=== PATIENT | female | born 1945 | race Caucasian/White ===

== ENCOUNTER 2017-09-20 01:22 | Inpatient (IN) | payer OTHER, MEDICARE ==
[2017-09-20] MEDS ORDERED: SODIUM CHLORIDE 0.9% FLUSH 10 ML FLUSH IV FLUSH ×2 (01:45→03:45)
[2017-09-20 01:58] LABS: AUTOMATED NEUTROPHIL # 7.4 TH/MM3 (1.8-7.7); BASOPHIL # 0.1 TH/MM3 (0-0.2); BASOPHIL % 0.9 % (0.0-2.0); EOSINOPHIL # 0.3 TH/MM3 (0-0.4); EOSINOPHIL % 2.6 % (0.0-4.0); HEMATOCRIT 41.2 % (35.0-46.0); HEMO FLAGS DIFF FINAL; HEMOGLOBIN 14.3 GM/DL (11.6-15.3); LYMPH % 19.5 % (9.0-44.0); LYMPHOCYTE # 2.1 TH/MM3 (1.0-4.8); MEAN CELL VOLUME 82.4 FL (80.0-100.0); MEAN CORPUSCULAR HEMOGLOBIN 28.6 PG (27.0-34.0); MEAN CORPUSCULAR HGB CONC 34.7 % (32.0-36.0); MEAN PLATELET VOLUME 8.3 FL (7.0-11.0); MONO % 7.9 % (0.0-8.0); MONOCYTE # 0.8 TH/MM3 (0-0.9); NEUT % 69.1 % (16.0-70.0); PLATELET COUNT 214 TH/MM3 (150-450); RED CELL DISTRIBUTION WIDTH 14.7 % (11.6-17.2); WHITE BLOOD COUNT 10.7 TH/MM3 (4.0-11.0)
[2017-09-20 02:13] LABS: ALBUMIN 3.2 GM/DL (3.4-5.0); ALT (GPT) 17 U/L (10-53); ANION GAP 8 MEQ/L (5-15); AST (GOT) 15 U/L (15-37); BLOOD UREA NITROGEN 22 MG/DL (7-18); CALCIUM 8.8 MG/DL (8.5-10.1); CHLORIDE 110 MEQ/L (98-107); CREATININE 1.19 MG/DL (0.50-1.00); GLOMERULAR FILTRATION RATE 44 ML/MIN (>89); GLUCOSE,RANDOM 170 MG/DL (74-106); LIPASE 203 U/L (73-393); POTASSIUM 3.4 MEQ/L (3.5-5.1); SODIUM (NA) 140 MEQ/L (136-145)
[2017-09-20 02:15] LABS: ALKALINE PHOSPHATASE 101 U/L (45-117); TOTAL BILIRUBIN ADULT 0.3 MG/DL (0.2-1.0); TOTAL PROTEIN 7.3 GM/DL (6.4-8.2)
[2017-09-20] MEDS: SODIUM CHLOR 0.9% 1000 ML INJ 1,000 ML IV ×2 (02:18→04:15)
[2017-09-20] MEDS: ONDANSETRON HCL 4 MG/2 ML VIAL IVP (02:19)
[2017-09-20] MEDS: MORPHINE SULFATE 4 MG/ML INJ IV PUSH (02:19)
[2017-09-20 02:34] LABS: AMORPHOUS SEDIMENT, URINE RARE; BILIRUBIN, URINE NEG (NEG); BLOOD, URINE MOD (NEG); COMMENT (UR) CULT NOT INDICATED; CULTURE IF INDICATED CULT NOT INDICATED; GLUCOSE,URINE NEG (NEG); KETONE, URINE NEG (NEG); NITRITE,URINE NEG (NEG); SQUAMOUS EPITHELIAL CELL URINE <1 /hpf (0-5); URINE COLOR LIGHT-YELLOW (YELLW/STRAW); URINE LEUKOCYTE ESTERASE NEG (NEG)
[2017-09-20] MEDS ORDERED: BISACODYL 10 MG SUPP RECTAL (03:45)
[2017-09-20] MEDS ORDERED: LACTULOSE SYRUP 20 GM/30 ML CUP PO (03:45)
[2017-09-20] MEDS ORDERED: NALOXONE HCL 0.4 MG/ML AMP IV PUSH (03:45)
[2017-09-20] MEDS ORDERED: ONDANSETRON HCL 4 MG/2 ML VIAL IVP (03:45)
[2017-09-20] MEDS ORDERED: SENNOSIDES 8.6 MG TAB PO (03:45)
[2017-09-20] MEDS ORDERED: ACETAMINOPHEN 325 MG TAB PO (03:45)
[2017-09-20] MEDS ORDERED: MAGNESIUM HYDROXIDE SUSP 30 ML CUP PO (03:45)
[2017-09-20] MEDS: MORPHINE SULFATE 2 MG/ML INJ IV PUSH ×2 (04:53→08:06)
[2017-09-20] MEDS: DOCUSATE SODIUM 50 MG/SENNA 8.6 MG TAB PO (08:06)
[2017-09-20] MEDS: PRAVASTATIN SOD 40 MG TAB PO (08:06)
[2017-09-20] MEDS: PANTOPRAZOLE SOD 20 MG DELAYED RELEASE TAB PO (08:06)
[2017-09-20] MEDS: amLODIPine BESYLATE 5 MG TAB PO (08:06)
[2017-09-20] MEDS: LOSARTAN 25 MG TAB PO (08:06)
[2017-09-20] MEDS: ESCITALOPRAM OXALATE 10 MG TAB PO (08:06)
[2017-09-20] MEDS: SODIUM CHLORIDE 0.9% FLUSH 10 ML FLUSH IV FLUSH (08:07)
[2017-09-20] MEDS ORDERED: TOPIRAMATE 25 MG TAB PO (21:00)
== END 2017-09-20 09:59 | disposition home or self-care (01) | DRG 694 ==
LOC: NEPE 01:22 → NEDA 03:33 → N07A 04:21
DX: N13.2 Hydronephrosis with renal and ureteral calculous obstruction (principal); N17.9 Acute kidney failure, unspecified; I10 Essential (primary) hypertension; E78.5 Hyperlipidemia, unspecified; R10.32 Left lower quadrant pain; Z85.828 Personal history of other malignant neoplasm of skin; Z87.442 Personal history of urinary calculi
CPT/HCPCS: 74176; 80053; 81001; 83690; 85025; 93005; 96361; 96374; 96375; 96376; 99285-25

== ENCOUNTER 2018-02-17 06:51 | Day surgery (SDC) | payer OTHER ==
[~2018-02-17] VITALS: Ht 167.6 cm; Wt 81.8 kg
[~2018-02-17 06:51] MED LIST: AMLO5TAB2 PO; ASPI-516 CHEW; BIOTCAP PO; D 50CAP2 PO; E 101000; ESCI10TA PO; LOSA25TA PO; MELO7.5T27 PO; NORC5TAB PO; OMEP20TA93 PO; PRAV40TA2 PO; TOPI50TA7 PO; VESI5TAB2 PO; VITA500L2 SL
[2018-02-17] MEDS ORDERED: IOHEXOL 300 MG/ML 50 ML BTL (for RAD DIAG) IT ONE (06:52)
[2018-02-17 07:11] VITALS: BP 162/114; PULSE 78; RESP 20; TEMP 97.8; O2SAT 94
[2018-02-17] MEDS ORDERED: DULO20 PO (07:59)
[2018-02-17] MEDS ORDERED: DIAZEPAM 5 MG TAB PO SCH (08:00)
[2018-02-17] MEDS ORDERED: LACTATED RINGER'S 1000 ML INJ 1,000 ML IV SCH ×2 (08:00→12:00)
[2018-02-17 08:11] LABS: AUTOMATED NEUTROPHIL # 4.3 TH/MM3 (1.8-7.7); BASOPHIL # 0.1 TH/MM3 (0-0.2); EOSINOPHIL # 0.5 TH/MM3 (0-0.4); EOSINOPHIL % 6.2 % (0.0-4.0); HEMATOCRIT 38.7 % (35.0-46.0); HEMOGLOBIN 12.7 GM/DL (11.6-15.3); LYMPH % 29.2 % (9.0-44.0); LYMPHOCYTE # 2.2 TH/MM3 (1.0-4.8); MEAN CELL VOLUME 77.3 FL (80.0-100.0); MEAN CORPUSCULAR HEMOGLOBIN 25.3 PG (27.0-34.0); MEAN CORPUSCULAR HGB CONC 32.7 % (32.0-36.0); MEAN PLATELET VOLUME 8.1 FL (7.0-11.0); MONOCYTE # 0.5 TH/MM3 (0-0.9); NEUT % 56.6 % (16.0-70.0); PLATELET COUNT 223 TH/MM3 (150-450); RED BLOOD COUNT 5.01 MIL/MM3 (4.00-5.30); RED CELL DISTRIBUTION WIDTH 16.7 % (11.6-17.2); WHITE BLOOD COUNT 7.6 TH/MM3 (4.0-11.0)
[2018-02-17 08:15] LABS: PROTHROMBIN TIME - PATIENT 10.6 SEC (9.8-11.6)
[2018-02-17 08:26] LABS: CALCIUM 8.6 MG/DL (8.5-10.1); CREATININE 0.87 MG/DL (0.50-1.00)
[2018-02-17 09:45] VITALS: BP 175/87; PULSE 60; RESP 20; TEMP 97.5; O2SAT 92
--- NOTE | 2018-02-17 09:52 | RADRPT ---
EXAM DATE: 02/17/2018 9:38 AM EDT AGE/SEX: 73 years / Female INDICATIONS: Patient presents with pain in shoulders and neck. CLINICAL DATA: This is the patient's initial encounter. Patient reports that signs and symptoms have been present for 4 - 6 months and indicates a pain score of 6/10. MEDICAL/SURGICAL HISTORY: Hypertension. Thyroid condition Hysterectomy. COMPARISON: [facility] [place]ERV[place] W/O CONTRAST, 02/17/2018. . FLUORO TIME (min): 1.2 IMAGE SERIES: 1 ACCESS SITE: L3-4 LUMBAR PUNCTURE TIME: 0900 hours CONTRAST (cc): 10cc Omnipaque (iohexol) 300 . . PROCEDURE: 1. Fluoroscopic guided lumbar puncture. 2. Instillation of intrathecal contrast. 3. Cervical myelogram. The risks, benefits and alternatives to the procedure were explained and verbal and written consent w as obtained. The site was prepped in sterile fashion. Full sterile technique was used, including ca p, mask, sterile gloves and gown and a large sterile sheet. Hand hygiene and 2% chlorhexidine and/or betadine/alcohol prep was utilized per protocol for cutaneous antisepsis. The skin and subcutaneous tissues were infiltrated with local anesthetic solution. With fluoroscopic guidance the lumbar thecal sac was punctured at level above and a diagnostic quanti ty of contrast is present in the subarachnoid space. Under fluoroscopic guidance contrast was moved t o the cervical region. The patient tolerated procedure well and there were no complications. CT scan is to be performed for further evaluation. CONCLUSION: 1. Uncomplicated cervical myelogram as above. CT scan is to be performed for further evaluation. Electronically signed by: Luis Angel Renee MD 02/17/2018 9:51 AM EDT
--- NOTE | 2018-02-17 13:19 | RADRPT ---
EXAM DATE: 02/17/2018 10:22 AM EDT AGE/SEX: 73 years / Female INDICATIONS: Cervical spondylosis, post myelogram. CLINICAL DATA: This is the patient's initial encounter. Patient reports that signs and symptoms have been present for 1 day and indicates a pain score of 0/10. MEDICAL/SURGICAL HISTORY: None. None. RADIATION DOSE: 20.18 CTDI (mGy) COMPARISON: No prior exams available for comparison. TECHNIQUE: Contiguous axial images were obtained using helical multirow detector technique. The vol umetric data was post-processed with multiplanar reconstruction in oblique axial, sagittal, and coron al planes. Using automated exposure control and adjustment of the mA and/or kV according to patient s ize, radiation dose was kept as low as reasonably achievable to obtain optimal diagnostic quality chip ges. DICOM format image data is available electronically for review and comparison. FINDINGS: Vertebrae: Normal vertebral body height. Alignment: There is 2 mm of anterior subluxation of C3 on C4. C2-3: The bony spinal canal is normal in size. No evidence of disc bulge or herniation. The neural foramina are bilaterally patent. There is facet hypertrophy being asymmetric and worse on the right. C3-4: Again noted is the anterior subluxation of C3 on C4. A significant impression on thecal sac is not seen. The neural foramina are patent. There is bilateral facet hypertrophy being worse on the le ft. There is mild uncovertebral hypertrophy being worse on the left. C4-5: The disc demonstrates decreased height. A significant impression on the thecal sac is not seen . There is left uncovertebral hypertrophy causing minimal narrowing of the left neural foramina. The right neural foramina is normal. C5-6: There is mild disc bulge and posterior osteophytic ridging. There continues to be CSF around t he cord. There is left facet and uncovertebral hypertrophy causing narrowing of the left neural dieter amparo. The right neural foramina is patent. C6-7: The disc images decreased height. There is mild bulging and osteophytic ridging. The osteophyt ic ridging is prominent in the central superior aspect of C7. The osteophyte abuts the anterior aspec t of the cord. Significant deformity of the cord is not seen. There is CSF seen around the cord. Ther e is left facet and uncovertebral hypertrophy causing narrowing of the left neural foramina. The righ t neural foramina is patent. C7-T1: There is mild disc bulge and osteophytic ridging. There continues be CSF around the cord. The neural foramina are patent bilaterally. CONCLUSION: 1. Degenerative change throughout the cervical spine as described above. 2. Significant stenosis is not clearly appreciated. Electronically signed by: Hernando Garcia MD 02/17/2018 1:17 PM EDT
[2018-02-17 13:55] VITALS: BP 159/92; PULSE 75; RESP 16; O2SAT 92
== END 2018-02-17 14:10 | disposition home or self-care (01) ==
LOC: HROP 06:51 → HRIP 06:53 → HROP 14:10
PROVIDERS: ATTEND Orthopaedic Surgery Orthopaedic Surgery of the Spine
DX: M47.812 Spondylosis without myelopathy or radiculopathy, cervical region (principal); I10 Essential (primary) hypertension; M54.2 Cervicalgia; M25.512 Pain in left shoulder; M25.511 Pain in right shoulder; E07.9 Disorder of thyroid, unspecified; E78.5 Hyperlipidemia, unspecified; Z01.818 Encounter for other preprocedural examination
CPT/HCPCS: 62302; 72125; 80048; 85025; 85610; 85730; J7120; Q9967

== ENCOUNTER 2018-04-19 06:10 | Observation (INO) ==
[2018-04-19] MEDS ORDERED: Metoprolol Tartrate 25 MG Tablet PO SCH (06:45)
[2018-04-19] MEDS ORDERED: Chlorhexidine Gluconate 2% 1 Pack (2 Cloths) TOPICAL SCH (06:45)
[2018-04-19] MEDS ORDERED: Sodium Chlor 0.9% Inj 500 ML IV.SIG SCH (07:00)
[2018-04-19] MEDS ORDERED: Estrogens Congugated Vag Cream w/app 30 GM Tube VAGINAL ONE (07:15)
[2018-04-19] MEDS ORDERED: fentaNYL Citrate Inj 100 MCG/2 ML Ampul ONE (10:09)
[2018-04-19] MEDS ORDERED: Sugammadex Inj 200 MG/2 ML Vial IV.PUSH ONE (10:10)
[2018-04-19] MEDS ORDERED: Morphine Inj 4 MG/ML Vial ONE ×2 (10:39→11:00)
[2018-04-19] MEDS ORDERED: Ketorolac Inj 30 MG/ML (IVP) Vial IV.PUSH PRN (12:00)
[2018-04-19] MEDS ORDERED: Phenylephrine/NS 1000 MCG/10ML Syringe IV.PUSH ONE (12:00)
[2018-04-19] MEDS ORDERED: Lidocaine PF 1% Inj 5 ML Syringe INFILTRATN ONE (12:00)
[2018-04-20] MEDS ORDERED: Lidocaine PF 1% Inj 5 ML Syringe INFILTRATN ONE (12:00)
[2018-04-20] MEDS ORDERED: Phenylephrine/NS 1000 MCG/10ML Syringe IV.PUSH ONE (12:00)
== END 2018-04-20 12:27 | disposition home or self-care (01) ==
LOC: PHSDC 06:10 → PH3 06:10
PROVIDERS: ADMIT Obstetrics & Gynecology; ATTEND Obstetrics & Gynecology